=== PATIENT | female | born 1970 ===

== ENCOUNTER 2020-02-23 21:14 | Emergency (ER) | payer SELFPAY ==
[~2020-02-23] VITALS: Ht 160 cm; Wt 81.6 kg
--- NOTE | 2020-02-23 21:30 | NUR ---
EKG DONE IN TRIAGE
--- NOTE | 2020-02-23 22:41 | NUR ---
PT TO ROOM FROM LOBBY AT THIS TIME.
[2020-02-23] MEDS ORDERED: KETOROLAC 30 MG/1 ML IM ONE (23:00)
[2020-02-23] MEDS ORDERED: METHOCARBAMOL 750 MG TABLET PO ONE (23:00)
--- NOTE | 2020-02-23 23:01 | NUR ---
REPORT OF PT FROM CHRIS MELO. PT NAME REGISTERED WRONG IN COMPUTER. REGISTRATION NOTIFIED OF MISTAKE AND COMING TO ROOM AT THIS TIME TO CORRECT PT INFO. ORDERS RECEIVED FROM JUANITA.
[2020-02-23] MEDS ORDERED: METHOCARBAMOL 750 MG TABLET ONE (23:24)
[2020-02-23] MEDS ORDERED: KETOROLAC 30 MG/1 ML ONE (23:25)
[2020-02-23 23:37] LABS: BASOPHILS % (AUTO) 1 % (0-1); EOSINOPHILS % (AUTO) 3 % (1-7); LYMPHOCYTES % (AUTO) 30 % (22-44); MEAN CORPUSCULAR HEMOGLOBIN 22.7 pg (27.0-34.8); MEAN PLATELET VOLUME 8.3 fL (7.4-10.4); MONOCYTES % (AUTO) 6 % (2-9); NEUTROPHILS % (AUTO) 60 % (42-75); PLATELET COUNT 508 x10^3/uL (130-400); RED BLOOD COUNT 3.89 x10^6/uL (3.82-5.3)
[2020-02-23 23:38] LABS: MD NO
--- NOTE | 2020-02-23 23:41 | NUR ---
PT MEDICATED PER MAR
[2020-02-23 23:48] LABS: ALANINE AMINOTRANSFERASE 24 U/L (12-78); ALBUMIN 3.5 g/dL (3.4-5.0); ANION GAP 5 mmol/L (5-15); CALCIUM 8.5 mg/dL (8.5-10.1); CHLORIDE 111 mmol/L (98-107); CREATININE 0.58 mg/dL (0.55-1.02)
[2020-02-23 23:53] LABS: ALKALINE PHOSPHATASE 119 U/L (45-117); BILIRUBIN,TOTAL 0.1 mg/dL (0.2-1.0); TOTAL PROTEIN 7.7 g/dL (6.4-8.2); TROPONIN I < 0.015 ng/mL (0.000-0.045)
--- NOTE | 2020-02-24 00:43 | NUR ---
PT D/C WITH D/C SUMMARY AND SCRIPTS. PT DENIES ANY OTHER NEEDS PERTAINING TO THIS VISIT. PT AMBULATES TO REGISTRATION DESK WITH STEADY GAIT FOR D/C HOME. ALL QUESTIONS ANSWERED. PT TO TRANSPORT PT HOME IN CAR FOR SAFE D/C HOME. PT VERBALIZES UNDERSTANDING OF NEED TO NOT OPERATE MOTOR VEHICLE OR HEAVY MACHINERY WHILE TAKING ROBAXIN.
== END 2020-02-24 00:47 | disposition home or self-care (01) ==
LOC: ED 21:44 → MERGE 21:44 → ED 02-24 00:47
DX: R07.89 Other chest pain (principal); D64.9 Anemia, unspecified; R25.2 Cramp and spasm; I10 Essential (primary) hypertension
CPT/HCPCS: 36415; 71045; 80053; 84484; 84703; 85025; 93005; 96372; 99285; J1885